=== PATIENT | female | born 2000 | race Caucasian/White ===

== ENCOUNTER → 2024-12-13 | Outpatient (CLI) | payer OTHER | LOC: LAB 15:34 → LAB SHORT 15:34 | DX: N39.0 Urinary tract infection, site not specified (principal) | CPT/HCPCS: 87077; 87086; 87186 ==

== ENCOUNTER → 2025-01-08 | Outpatient (CLI) | payer OTHER ==
[2025-01-11 14:23] LABS: C. TRACHOMATIS BY TMA,THINPREP Negative (Negative); N. GONORRHOEAE BY TMA,THINPREP Negative (Negative); SPECIMEN SOURCE Cervical
== END ==
LOC: LAB SHORT 15:32 → LAB 15:32
PROVIDERS: Advanced Practice Midwife; Family Medicine
DX: Z11.3 Encounter for screening for infections with a predominantly sexual mode of transmission (principal); Z01.419 Encounter for gynecological examination (general) (routine) without abnormal findings
CPT/HCPCS: 87491; 87591; G0123